=== PATIENT | male | born 1945 | race Caucasian/White ===

== ENCOUNTER 2021-05-01 11:23 | Emergency (ER) | payer OTHER ==
[2021-05-01 11:45] VITALS: BMI 30.1
[2021-05-01 12:31] LABS: BASO % 0.4 % (0-2.0); EOS % 4.2 % (0-4.5); HEMATOCRIT 33.8 % (35.4-49); HEMOGLOBIN 11.4 GM/dL (11.7-16.9); LYMPH % 20.7 % (8-40); MCH 30.1 pg (25.7-33.7); MCHC 33.6 g/dl (32.0-35.9); MEAN CELL VOLUME 89.6 fl (80-96); MEAN PLT VOLUME 8.8 fl (7.5-11.1); MONO % 8.7 % (3.8-10.2); PLATELET COUNT 213 10^3/uL (134-434); RBC 3.77 M/mm3 (4.00-5.60); RDW 14.5 % (11.9-15.9)
[2021-05-01 12:37] LABS: INR 1.04 (0.83-1.09); PROTHROMBIN TIME (PATIENT) 12.6 SEC (9.7-13.0)
[2021-05-01 12:39] LABS: ACTIVATED PTT 29.4 SECONDS (25.2-36.5)
[2021-05-01 12:48] LABS: CHLORIDE 109 mmol/L (98-107); SODIUM 141 mmol/L (136-145)
[2021-05-01 12:50] LABS: ALBUMIN 3.9 g/dl (3.4-5.0); ANION GAP 8 MMOL/L (8-16); BLOOD UREA NITROGEN 30.3 mg/dL (7-18); CO2 25 mmol/L (21-32)
[2021-05-01 12:51] LABS: GLUCOSE,RANDOM 113 mg/dL (74-106)
[2021-05-01 12:54] LABS: CREATININE 1.7 mg/dL (0.55-1.3); SGOT/AST 16 U/L (15-37); SGPT/ALT 18 U/L (13-61)
[2021-05-01 12:55] LABS: BILIRUBIN,TOTAL 0.3 mg/dL (0.2-1); TOT PROT 7.3 g/dl (6.4-8.2)
[2021-05-01 12:56] LABS: ALK PHOS 70 U/L (45-117)
[2021-05-01] MEDS ORDERED: KCL 10 MEQ IVPB 10 MEQ/100 ML INFUS.BAG IVPB SCH (13:00)
[2021-05-01] MEDS ORDERED: ACETAMINOPHEN 325 MG TABLET (FP) PO ONE (15:50)
[2021-05-01] MEDS ORDERED: ACETAMINOPHEN 325 MG TABLET (FP) ONE (15:57)
[2021-05-01] MEDS ORDERED: MAG HYDROX/AL HYDROX/SIMETH 30 ML UNIT-DOSE CUP PO ONE (17:54)
[2021-05-01] MEDS ORDERED: MAG HYDROX/AL HYDROX/SIMETH 30 ML UNIT-DOSE CUP ONE (18:27)
[2021-05-02 01:05] VITALS: BP 92/56; PULSE 100; TEMP 98.5
== END 2021-05-02 01:30 ==
LOC: JER 11:23
DX: R91.1 Solitary pulmonary nodule (principal); R07.9 Chest pain, unspecified
CPT/HCPCS: 36415; 71045-TC-FY; 71275-TC; 74174-TC; 80053; 84484; 85025; 85610; 85730; 93005; 93010; 99285-25; C9803; Q9967; U0003; U0005

== ENCOUNTER 2021-10-03 04:43 | Day surgery (SDC) | payer OTHER ==
[2021-10-02 19:58] VITALS: BMI 27.6
[2021-10-03 14:36] VITALS: PULSE 64
[2021-10-03 15:52] VITALS: BP 160/80; TEMP 98
== END 2021-10-03 15:54 ==
LOC: JRADIR 04:43
PROVIDERS: ATTEND Family Medicine
PROC: 0BBG3ZX Excision of Left Upper Lung Lobe, Percutaneous Approach, Diagnostic (ICD-10-PCS; principal; 2021-10-03)
DX: C34.12 Malignant neoplasm of upper lobe, left bronchus or lung (principal)
CPT/HCPCS: 32408; 71046-TC-FY; 88305-TC; 88341-TC; 88342-TC

== ENCOUNTER 2022-11-23 00:51 | Observation (INO) | payer OTHER ==
[2022-11-23 01:16] VITALS: BMI 20.5
[2022-11-23] MEDS ORDERED: PIPERACILLIN/TAZOB 4.5 GM 4.5 GM in DEXTROSE 5%-WATER 100 ML IVPB ONE (02:52)
[2022-11-23 03:17] LABS: BASO % 0.6 % (0-2.0); EOS % 4.4 % (0-4.5); HEMATOCRIT 27.8 % (35.4-49); HEMOGLOBIN 8.8 GM/dL (11.7-16.9); LYMPH % 22.5 % (8-40); MCH 25.4 pg (25.7-33.7); MCHC 31.8 g/dl (32.0-35.9); MEAN CELL VOLUME 79.8 fl (80-96); MONO % 10.7 % (3.8-10.2); NEUT % 61.8 % (42.8-82.8); PLATELET COUNT 209 10^3/uL (134-434); RBC 3.48 M/mm3 (4.00-5.60); RDW 17.7 % (11.9-15.9); WHITE BLOOD COUNT 4.6 K/mm3 (4.0-10.0)
[2022-11-23 03:27] LABS: INR 1.04 (0.83-1.09)
[2022-11-23] MEDS ORDERED: PIPERACILLIN/TAZOB 4.5 GM 4.5 GM/100 ML BAG IVPB ONE (03:27)
[2022-11-23 03:30] LABS: ACTIVATED PTT 30.4 SECONDS (25.2-36.5)
[2022-11-23 03:40] LABS: CALCIUM 8.7 mg/dL (8.5-10.1)
[2022-11-23 03:41] LABS: ALBUMIN 3.4 g/dl (3.4-5.0); BLOOD UREA NITROGEN 41.4 mg/dL (7-18); MAGNESIUM 2.4 mg/dL (1.8-2.4)
[2022-11-23 03:44] LABS: CREATININE 1.9 mg/dL (0.55-1.3)
[2022-11-23 03:45] LABS: BILIRUBIN,TOTAL 0.2 mg/dL (0.2-1)
[2022-11-23] MEDS ORDERED: SODIUM CHLORIDE 1,000 ML IV SCH (05:00)
[2022-11-23 05:56] LABS: URINE APPEARANCE CLOUDY; URINE BILIRUBIN NEGATIVE (NEGATIVE); URINE COLOR YELLOW; URINE GLUCOSE (UA) NEGATIVE (NEGATIVE); URINE KETONE NEGATIVE (NEGATIVE); URINE LEUK ESTERASE NEGATIVE (NEGATIVE); URINE NITRITE NEGATIVE (NEGATIVE); URINE PROTEIN TRACE (NEGATIVE); URINE UROBILINOGEN 0.2 mg/dL (0.2-1.0)
[2022-11-23] MEDS ORDERED: LEVOTHYROXINE NA 88 MCG TABLET (FP) PO SCH (09:40)
[2022-11-23] MEDS ORDERED: TAMSULOSIN HCL 0.4 MG CAP PO SCH (09:40)
[2022-11-23] MEDS ORDERED: SERTRALINE HCL 50 MG TABLET (FP) PO SCH (10:00)
[2022-11-23] MEDS ORDERED: CARVEDILOL 6.25 MG TABLET (FP) PO SCH (10:00)
[2022-11-23] MEDS ORDERED: BICALUTAMIDE 50 MG TABLET (FP) PO SCH (10:00)
[2022-11-23] MEDS ORDERED: ISOSORBIDE MONONITRATE 30 MG TAB.SR.24H (FP) PO SCH (10:00)
[2022-11-23] MEDS ORDERED: CLOPIDOGREL BISULFATE 75 MG TABLET (FP) PO SCH (10:00)
[2022-11-23] MEDS ORDERED: rOPINIRole HCL 1 MG TABLET (FP) PO SCH (10:00)
[2022-11-23] MEDS ORDERED: TAMSULOSIN HCL 0.4 MG CAP ONE (10:54)
[2022-11-23] MEDS ORDERED: CLOPIDOGREL BISULFATE 75 MG TABLET (FP) ONE (10:54)
[2022-11-23] MEDS ORDERED: ISOSORBIDE MONONITRATE 30 MG TAB.SR.24H (FP) PO ONE (10:54)
[2022-11-23] MEDS ORDERED: LEVOTHYROXINE NA 88 MCG TABLET (FP) ONE (10:54)
[2022-11-23] MEDS ORDERED: SERTRALINE HCL 50 MG TABLET (FP) ONE (10:54)
[2022-11-23] MEDS ORDERED: CARVEDILOL 6.25 MG TABLET (FP) ONE (10:55)
[2022-11-23] MEDS ORDERED: INSULIN SLIDING SCALE (NOVOLOG) 1 VIAL SQ SCH (11:00)
[2022-11-23 13:12] VITALS: TEMP 98.1
[2022-11-23] MEDS ORDERED: HEPARIN NA (PORCINE) 5,000 UNITS/ML 1ML VIAL SQ SCH (14:00)
[2022-11-23 17:51] VITALS: BP 154/74; PULSE 69; RESP 14
[2022-11-23] MEDS ORDERED: QUEtiapine FUMARATE 25 MG TABLET PO SCH (22:00)
[2022-11-23] MEDS ORDERED: traZODone HCL 50 MG TABLET (FP) PO SCH (22:00)
[2022-11-23] MEDS ORDERED: ATORVASTATIN CA 20 MG TABLET (FP) PO SCH (22:00)
== END 2022-11-23 18:25 ==
LOC: JER 00:51 → JERBED 06:04 → UNDOADMOB 06:04 → INTOOBSV 06:04 → JERBED 10:25
PROVIDERS: ADMIT Internal Medicine; ATTEND Internal Medicine
PROC: 3E03329 Introduction of Other Anti-infective into Peripheral Vein, Percutaneous Approach (ICD-10-PCS; principal; 2022-11-23)
PROC: 3E0337Z Introduction of Electrolytic and Water Balance Substance into Peripheral Vein, Percutaneous Approach (ICD-10-PCS; 2022-11-23)
DX: N17.9 Acute kidney failure, unspecified (principal); G20 Parkinson's disease; F02.80 Dementia in other diseases classified elsewhere, unspecified severity, without behavioral disturbance, psychotic disturbance, mood disturbance, and anxiety; J18.9 Pneumonia, unspecified organism; I25.10 Atherosclerotic heart disease of native coronary artery without angina pectoris; I11.9 Hypertensive heart disease without heart failure; E78.5 Hyperlipidemia, unspecified; I71.40 Abdominal aortic aneurysm, without rupture, unspecified; E03.9 Hypothyroidism, unspecified; Z85.118 Personal history of other malignant neoplasm of bronchus and lung; R07.9 Chest pain, unspecified
CPT/HCPCS: 0241U-QW; 36415; 71045-TC-FY; 74176-TC; 80053; 81003; 82728; 82962; 83540; 83550; 83690; 83735; 84484; 85025; 85610; 85730; 87086; 93005; 93010; 96361; 96365; 99285-25; G0378